=== PATIENT | female | born 1990 | race Caucasian/White ===

== ENCOUNTER 2016-06-19 18:25 | Emergency (ER) | payer OTHER ==
[2016-06-19 19:35] LABS: HEMOGLOBIN 14.5 gm/dl (12.3-15.3); RED BLOOD COUNT 4.42 M/UL (4.00-5.10); WHITE BLOOD COUNT 6.2 K/UL (4.5-11.0)
[2016-06-19 19:57] LABS: BUN/CREATININE RATIO 11 (0-10)
== END 2016-06-19 22:42 | disposition home or self-care (01) ==
LOC: ER1 18:25
PROVIDERS: Physician Assistant
DX: J45.901 Unspecified asthma with (acute) exacerbation (principal); R55 Syncope and collapse; S00.03XA Contusion of scalp, initial encounter; X58.XXXA Exposure to other specified factors, initial encounter; F41.9 Anxiety disorder, unspecified; Z88.8 Allergy status to other drugs, medicaments and biological substances; Z79.899 Other long term (current) drug therapy; Z79.51 Long term (current) use of inhaled steroids
CPT/HCPCS: 36415; 70450; 71020; 72125; 80053; 81001; 82550; 82553; 83690; 83874; 84484; 84703; 85025; 87040; 93005; 94664; 96361; 96374; 96375; 99284; J1100; J2060; J2405; J7030

== ENCOUNTER → 2016-07-21 | Outpatient (CLI) | payer OTHER | LOC: HEART 5 08:26 | DX: J45.909 Unspecified asthma, uncomplicated (principal) | CPT/HCPCS: 94060 ==

== ENCOUNTER → 2016-08-03 | Outpatient (CLI) | payer OTHER | LOC: HEART 5 15:23 | DX: J45.909 Unspecified asthma, uncomplicated (principal); F41.0 Panic disorder [episodic paroxysmal anxiety]; F32.9 Major depressive disorder, single episode, unspecified | CPT/HCPCS: 94010 ==